=== PATIENT | male | born 1965 | race Caucasian/White ===

== ENCOUNTER 2020-06-29 10:05 | Emergency (ER) | payer OTHER ==
[2020-06-29 11:13] LABS: BASOPHIL 0.2 % (0-2); EOSINOPHIL 0.2 % (0-5); HCT 29.9 % (42.0-52.0); HGB 9.4 g/dl (13.2-18.0); LYMPHOCYTE 5.8 % (15-48); MCH 25.4 pg (25.0-31.0); MCHC 31.4 g/dL (32.0-36.0); MCV 80.8 fL (78.0-100.0); MONOCYTE 5.1 % (0-12); MPV 10.4 fL (6.0-9.5); NEUTROPHIL 86.9 % (41-80); NRBC 0; PLT 147 K/uL (150-400); RDW 15.9 % (11.5-14.0); WBC 11.9 K/uL (4.0-10.5)
[2020-06-29 11:34] LABS: ALBUMIN 2.8 g/dL (3.4-5.0); BILIRUBIN - TOTAL 1.4 mg/dL (0.2-1.0); BUN/CREAT RATIO (CALC) 24.6 RATIO; CREATININE 0.69 mg/dL (0.67-1.17); GLOBULIN (CALCULATION) 4.9 g/dL; POTASSIUM 3.8 mmol/L (3.5-5.1); TOTAL PROTEIN 7.7 g/dL (6.4-8.2)
[2020-06-29 13:11] LABS: BILIRUBIN 1+ mg/dL (NEGATIVE); BLOOD NEGATIVE Ery/uL (NEGATIVE); CLARITY CLEAR (CLEAR); COLOR YELLOW (YELLOW); GLUCOSE (U) NORMAL (NORMAL); LEUKOCYTES NEGATIVE Leu/uL (NEGATIVE); NITRITE NEGATIVE (NEGATIVE); PROTEIN TRACE (LOW) mg/dL (NEGATIVE); pH 6.5 (5.0-9.0)
[2020-06-29 13:24] LABS: BACTERIA TRACE
[2020-06-29 17:16] LABS: CORONAVIRUS 2019 SARS-COV-2 NEGATIVE (NEGATIVE); INFLUENZA A NAA NEGATIVE (NEGATIVE)
== END 2020-06-29 20:45 | disposition other institution (70) ==
LOC: FER 10:05
PROVIDERS: Emergency Medicine
DX: T81.43XA Infection following a procedure, organ and space surgical site, initial encounter (principal); K65.1 Peritoneal abscess; R19.7 Diarrhea, unspecified; K21.9 Gastro-esophageal reflux disease without esophagitis; Z79.899 Other long term (current) drug therapy; Y83.6 Removal of other organ (partial) (total) as the cause of abnormal reaction of the patient, or of later complication, without mention of misadventure at the time of the procedure; Z20.822 Contact with and (suspected) exposure to COVID-19
CPT/HCPCS: 36415; 80053; 81001; 83690; 85025; J2270; J2405; J2543; Q9967; U0002